=== PATIENT | male | born 1950 | race Caucasian/White ===

== ENCOUNTER 2016-08-29 07:47 | Day surgery (SDC) | payer OTHER ==
--- NOTE | ~2016-08-29 | EGD ---
EGD REPORT [facility] [address] [address] NAME: AMOS VELEZ : [birth year] STATUS : REG [facility]#: [id number] AGE: 66 ADM/REG DATE : 08/29/16 MR#: [id number] REPORT SERV DATE: 08/29/16 DICTATED BY: RONAN DIEGO DATE: 08/29/16 REPORT STATUS : Draft TRANSCRIBED BY: [facility] DATE: 08/29/16 [facility] Center Patient Name: Amos Velez Date of : 1950 Attending MD: RONAN DIEGO, Procedure Date No Time: 08/29/2016 Procedure: Colonoscopy Indications: Screening for colorectal malignant neoplasm Referring MD: ETELVINA KIM Medicines: Propofol per Anesthesia Complications: No immediate complications. Estimated blood loss: None. Procedure: Pre-Anesthesia Assessment: - ASA Grade Assessment: III - A patient with severe systemic disease. After I obtained informed consent, the scope was passed under direct vision. Throughout the procedure, the patient's blood pressure, pulse, and oxygen saturations were monitored continuously. The CF [id number] was introduced through the anus and advanced to the cecum, identified by appendiceal orifice and ileocecal valve. The colonoscopy was performed with ease. The patient tolerated the procedure well. The quality of the bowel preparation was good. Findings: The perianal and digital rectal examinations were normal. A sessile polyp was found in the sigmoid colon. The polyp was 5 mm in size. The polyp was removed with a cold snare. Resection and retrieval were complete. Estimated blood loss: none. Multiple small-mouthed diverticula were found in the sigmoid colon and in the descending colon. Impression: - One 5 mm polyp in the sigmoid colon. Resected and retrieved. - Diverticulosis in the sigmoid colon and in the descending colon. Recommendation: - Patient has a contact number available for emergencies. The signs and symptoms of potential delayed complications were discussed with the patient. Return to normal activities tomorrow. Written discharge instructions were provided to the patient. - High fiber diet. - Discharge patient to home (with escort). - Continue present medications. EGD REPORT [address] [address] NAME: AMOS VELEZ : [birth year] [place]US : [place] [facility] [place] [id number] AGE: 66 ADM/REG DATE : 08/29/16 MR#: [id number] REPORT SERV DATE: 08/29/16 DICTATED BY: RONAN DIEGO DATE: 08/29/16 REPORT STATUS : Draft TRANSCRIBED BY: [email or web address] DATE: 08/29/16 - Await pathology results. - Repeat colonoscopy in 5 years for surveillance. - Return to GI clinic in 4 weeks. Procedure Code(s): --- Professional --- 93028, Colonoscopy, flexible, proximal to splenic flexure; with removal of tumor(s), polyp(s), or other lesion(s) by snare technique Diagnosis Code(s): --- Professional --- D12.5, Benign neoplasm of sigmoid colon K57.30, Diverticulosis of large intestine without perforation or abscess without bleeding Z12.11, Encounter for screening for malignant neoplasm of colon CPT copyright 2013 [employer]. All rights reserved. The codes documented in this report are preliminary and upon associate professor physician review may be revised to meet current compliance requirements. RONAN DIEGO, 08/29/2016 10:42 AM This report has been signed electronically. Number of Addenda: 0 Note Initiated On: 08/29/2016 10:05 AM Scope Withdrawal Time 0 hours 10 minutes 29 seconds [address] [id number]
[~2016-08-29 07:47] MED LIST: ASABAYER PO; COZ25 PO; COZ50 PO; FISH-EPA1000 MG PO; GLUCOPHAGE1000 MG PO; GLUCOTRO10 PO; GLUCXL2.5 PO; ICAPS MV PO; INVOKANA100 MG PO; LORT7 PO; MULTIVITAMI1 PO; NORCO1 TA1 PO; OS500+D PO; PLAVIX PO; ZOCOR10 PO
== END 2016-08-29 23:59 | disposition home or self-care (01) ==
LOC: DMU 07:47
PROVIDERS: Internal Medicine Gastroenterology
PROC: 0DBN8ZX Excision of Sigmoid Colon, Via Natural or Artificial Opening Endoscopic, Diagnostic (ICD-10-PCS; principal; 2016-08-29 10:30)
DX: Z12.11 Encounter for screening for malignant neoplasm of colon (principal); K57.30 Diverticulosis of large intestine without perforation or abscess without bleeding; K63.5 Polyp of colon; I25.10 Atherosclerotic heart disease of native coronary artery without angina pectoris; M19.90 Unspecified osteoarthritis, unspecified site; E11.9 Type 2 diabetes mellitus without complications; K21.9 Gastro-esophageal reflux disease without esophagitis; E78.00 Pure hypercholesterolemia, unspecified; Z79.52 Long term (current) use of systemic steroids; Z79.899 Other long term (current) drug therapy; Z90.49 Acquired absence of other specified parts of digestive tract; Z87.442 Personal history of urinary calculi; Z98.890 Other specified postprocedural states
CPT/HCPCS: 82962; 88305